=== PATIENT | male | born 1995 | race Caucasian/White ===

== ENCOUNTER 2017-02-17 14:14 | Emergency (ER) | payer MEDICAID ==
[~2017-02-17] VITALS: Ht 172.7 cm; Wt 97.5 kg
[~2017-02-17 14:14] MED LIST: ABILIFY; PROZAC; STRATTERA
[2017-02-17 14:23] VITALS: BP_SYST 150
[2017-02-17] MEDS ORDERED: HYDROcodone/ACETAMIN 7.5-325 MG TAB PO ONE (16:45)
[2017-02-17] MEDS ORDERED: BACITRACIN 1 GM OINT TP ONE (16:45)
[2017-02-17 17:37] VITALS: BP_SYST 157
== END 2017-02-17 17:37 | disposition home or self-care (01) ==
LOC: SED 14:14
DX: S52.124A Nondisplaced fracture of head of right radius, initial encounter for closed fracture (principal); I10 Essential (primary) hypertension; F31.9 Bipolar disorder, unspecified; V00.131A Fall from skateboard, initial encounter; Y93.51 Activity, roller skating (inline) and skateboarding; Y92.89 Other specified places as the place of occurrence of the external cause; Y99.8 Other external cause status
CPT/HCPCS: 99284

== ENCOUNTER 2017-06-05 18:26 | Emergency (ER) | payer MEDICAID ==
[~2017-06-05] VITALS: Ht 167.6 cm; Wt 92.5 kg
[2017-06-05 18:48] VITALS: BP_SYST 144
--- NOTE | 2017-06-05 18:50 | NUR ---
Patient to ER bed 02 to gown for evaluation. Side rails up. Report given to JOSY Berg
--- NOTE | 2017-06-05 19:00 | NUR ---
ER Dr. Palacio at bedside examining patient.
[2017-06-05] MEDS ORDERED: HYDROcodone/ACETAMIN 5-325 MG TAB (NORCO/ VICODIN) PO ONE (19:15)
--- NOTE | 2017-06-05 19:15 | NUR ---
Pt has had two bug bites that are on both flanks. Red, swollen, and painful to touch. Will continue to monitor. No other injuries or complaints mentioned/noted. No distress noted.
[2017-06-05] MEDS ORDERED: ceFAZolin SODIUM 1 GM VIAL IM ONE (20:30)
[2017-06-05] MEDS ORDERED: LIDOCAINE 1%, 20 ML MDV 20 ML ONE (21:27)
--- NOTE | 2017-06-05 21:30 | NUR ---
Dr. Garner asked for blood cultures before administration. No change in orders at this time.
--- NOTE | 2017-06-05 21:37 | NUR ---
Medication will not scan. Full name, , and allergies confirmed before administration.
[2017-06-05 21:45] VITALS: BP_SYST 144
--- NOTE | 2017-06-05 21:45 | NUR ---
Patient given written and verbal discharge instructions and verbalizes understanding. ER MD discussed with patient the results and treatment provided. Patient in stable condition. ID arm band removed. Rx of keflex, Prednisone, and Clindamycin given. Patient educated on pain management and to follow up with PMD. Pain Scale 0/10. Opportunity for questions provided and answered. No adverse reactions noted.
== END 2017-06-05 21:45 | disposition home or self-care (01) ==
LOC: SED 18:26
DX: S30.861A Insect bite (nonvenomous) of abdominal wall, initial encounter (principal); L03.311 Cellulitis of abdominal wall; I10 Essential (primary) hypertension; F31.9 Bipolar disorder, unspecified; W57.XXXA Bitten or stung by nonvenomous insect and other nonvenomous arthropods, initial encounter; Y93.89 Activity, other specified; Y92.89 Other specified places as the place of occurrence of the external cause; Y99.8 Other external cause status
CPT/HCPCS: 96372; 99283; J0690; J2001

== ENCOUNTER 2017-08-06 09:53 | Emergency (ER) | payer MEDICAID ==
[~2017-08-06] VITALS: Ht 172.7 cm; Wt 90.7 kg
[2017-08-06 10:01] VITALS: BP_SYST 150
[2017-08-06] MEDS ORDERED: PENICILLIN G BENZATHINE 1.2 MMU/2 ML SYR IM ONE (11:00)
[2017-08-06 11:10] VITALS: BP_SYST 140
== END 2017-08-06 11:10 | disposition home or self-care (01) ==
LOC: SED 09:53
DX: S30.860A Insect bite (nonvenomous) of lower back and pelvis, initial encounter (principal); L03.312 Cellulitis of back [any part except buttock and flank]; I10 Essential (primary) hypertension; F31.9 Bipolar disorder, unspecified; W57.XXXA Bitten or stung by nonvenomous insect and other nonvenomous arthropods, initial encounter; Y93.89 Activity, other specified; Y92.89 Other specified places as the place of occurrence of the external cause; Y99.8 Other external cause status
CPT/HCPCS: 99283

== ENCOUNTER 2017-09-09 17:59 | Emergency (ER) | payer MEDICAID ==
[~2017-09-09] VITALS: Ht 170.2 cm; Wt 95.3 kg
[2017-09-09 18:11] VITALS: BP_SYST 164
[2017-09-09] MEDS ORDERED: LORazepam 1 MG TABLET PO ONE (19:15)
[2017-09-09] MEDS ORDERED: KETOROLAC TROMETHAMINE 60 MG/2 ML VIAL IM ONE (19:30)
[2017-09-09 20:01] VITALS: BP_SYST 145
== END 2017-09-09 20:00 | disposition home or self-care (01) ==
LOC: SED 17:59
DX: R07.89 Other chest pain (principal); R03.0 Elevated blood-pressure reading, without diagnosis of hypertension; I10 Essential (primary) hypertension; F31.9 Bipolar disorder, unspecified
CPT/HCPCS: 93005; 96372; 99283; J1885

== ENCOUNTER 2017-09-12 00:41 | Emergency (ER) | payer MEDICAID ==
[~2017-09-12] VITALS: Ht 170.2 cm; Wt 95.3 kg
[2017-09-12 00:45] VITALS: BP_SYST 150
[2017-09-12] MEDS: PREDNISONE 20 MG TABLET PO ONE (01:18)
[2017-09-12] MEDS: DIPHENHYDRAMINE HCL 50 MG CAPSULE PO ONE (01:18)
[2017-09-12 01:36] VITALS: BP_SYST 147
== END 2017-09-12 01:36 | disposition home or self-care (01) ==
LOC: SED 00:41
DX: T78.49XA Other allergy, initial encounter (principal); R22.0 Localized swelling, mass and lump, head; I10 Essential (primary) hypertension; F31.9 Bipolar disorder, unspecified; X58.XXXA Exposure to other specified factors, initial encounter
CPT/HCPCS: 99283; J7512; Q0163

== ENCOUNTER 2017-10-01 19:33 | Emergency (ER) | payer MEDICAID ==
--- NOTE | 2017-10-01 20:15 | NUR ---
Called pt x1, no answer
--- NOTE | 2017-10-01 20:20 | NUR ---
Called pt x2 no answer
--- NOTE | 2017-10-01 20:25 | NUR ---
Patient left without being seen.
== END 2017-10-01 20:25 | disposition left against medical advice (07) ==
LOC: SED 19:33
DX: S89.90XA Unspecified injury of unspecified lower leg, initial encounter (principal); Z53.21 Procedure and treatment not carried out due to patient leaving prior to being seen by health care provider; X58.XXXA Exposure to other specified factors, initial encounter; Y93.89 Activity, other specified; Y92.89 Other specified places as the place of occurrence of the external cause; Y99.8 Other external cause status

== ENCOUNTER 2017-10-02 08:41 | Emergency (ER) | payer MEDICAID ==
[~2017-10-02] VITALS: Ht 170.2 cm; Wt 99.8 kg
[2017-10-02 09:01] VITALS: BP_SYST 143
--- NOTE | 2017-10-02 09:06 | NUR ---
Pt placed to ER bed 04, to gown, report given to JOSY Bustamante.
--- NOTE | 2017-10-02 09:10 | NUR ---
ER at bedside examining patient.
--- NOTE | 2017-10-02 09:12 | NUR ---
Pt presents to ER c/o L thigh / hip pain of 10/10 s/p [facility] fall 1 week ago. Pt reports taking pain medication at home with little relief. Pt denies pain elsewhere. Pt reports history of HTN. No acute distress noted, AOX4, NKDA.
--- NOTE | 2017-10-02 09:40 | NUR ---
Dr. Rodriguez at bedside updating pt on results of xray.
[2017-10-02 09:53] VITALS: BP_SYST 152
--- NOTE | 2017-10-02 09:53 | NUR ---
Patient given written and verbal discharge instructions and verbalizes understanding. ER MD discussed with patient the results and treatment provided. Patient in stable condition. ID arm band removed. Rx of Ibuprofen 800mg given. Patient educated on pain management and to follow up with PMD. Pain Scale 10/10 as per pt, but Dr. Rodriguez sent pt home with pain medication. Opportunity for questions provided and answered.
== END 2017-10-02 09:53 | disposition home or self-care (01) ==
LOC: SED 08:41
DX: S70.02XA Contusion of left hip, initial encounter (principal); S30.0XXA Contusion of lower back and pelvis, initial encounter; F31.9 Bipolar disorder, unspecified; I10 Essential (primary) hypertension; W17.89XA Other fall from one level to another, initial encounter; Y93.89 Activity, other specified; Y92.89 Other specified places as the place of occurrence of the external cause; Y99.8 Other external cause status
CPT/HCPCS: 72170-TC; 73502; 99284

== ENCOUNTER 2017-10-23 00:44 | Emergency (ER) | payer MEDICAID ==
[~2017-10-23] VITALS: Ht 170.2 cm; Wt 99.8 kg
[2017-10-23 00:46] VITALS: BP_SYST 148
[2017-10-23] MEDS ORDERED: FAMOTIDINE 20 MG TABLET PO ONE (01:00)
[2017-10-23] MEDS ORDERED: DIPHENHYDRAMINE HCL 25 MG CAPSULE PO ONE (01:00)
[2017-10-23] MEDS ORDERED: PREDNISONE 20 MG TABLET PO ONE (01:00)
[2017-10-23 01:18] VITALS: BP_SYST 133
== END 2017-10-23 01:18 | disposition home or self-care (01) ==
LOC: SED 00:44
DX: T78.1XXA Other adverse food reactions, not elsewhere classified, initial encounter (principal); F31.9 Bipolar disorder, unspecified; I10 Essential (primary) hypertension; Z91.018 Allergy to other foods; X58.XXXA Exposure to other specified factors, initial encounter
CPT/HCPCS: 99284; J7512; Q0163

== ENCOUNTER 2017-12-05 01:00 | Emergency (ER) | payer MEDICAID ==
[~2017-12-05] VITALS: Ht 170.2 cm; Wt 97.5 kg
[2017-12-05 01:08] VITALS: BP_SYST 156
--- NOTE | 2017-12-05 01:08 | NUR ---
Patient to ER bed 07 to gown for evaluation. Side rails up. Will assume care
--- NOTE | 2017-12-05 01:10 | NUR ---
Patient complaining of lip swelling after work. 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 Patient states he took a pill of Prednisone and some swelling went down. Denies any shortness of breath. Denies any pain. No other complaints/injuries per patient or as noted. Will continue to monitor
--- NOTE | 2017-12-05 01:14 | NUR ---
MARTI Zepeda at bedside examining patient.
[2017-12-05] MEDS ORDERED: FAMOTIDINE 20 MG TABLET PO ONE (01:15)
[2017-12-05] MEDS ORDERED: DIPHENHYDRAMINE HCL 25 MG CAPSULE PO ONE (01:15)
--- NOTE | 2017-12-05 01:20 | NUR ---
Patient medicated per md orders
[2017-12-05 01:40] VITALS: BP_SYST 146
--- NOTE | 2017-12-05 01:40 | NUR ---
Patient given verbal discharge instructions and verbalizes understanding. ER MD discussed with patient the results and treatment provided. Patient in stable condition. Patient left without Rx of Pepcid, Prednisone and Benadryl. Patient educated on pain management and to follow up with PMD in 2-3 days. Pain Scale 0/10 Opportunity for questions provided and answered.
== END 2017-12-05 01:40 | disposition home or self-care (01) ==
LOC: SED 01:00
DX: T78.49XA Other allergy, initial encounter (principal); R22.0 Localized swelling, mass and lump, head; I10 Essential (primary) hypertension; F31.9 Bipolar disorder, unspecified; Z91.018 Allergy to other foods; X58.XXXA Exposure to other specified factors, initial encounter
CPT/HCPCS: 99283; Q0163

== ENCOUNTER 2018-01-16 08:23 | Emergency (ER) | payer MEDICAID ==
[~2018-01-16] VITALS: Ht 170.2 cm; Wt 97.5 kg
[2018-01-16 08:42] VITALS: BP_SYST 156
[2018-01-16] MEDS ORDERED: LevALBUTEROL HCL 1.25 MG/0.5 ML *CONC.* VIAL.NEB (XOPENEX CONC.) INH ONE (09:50)
[2018-01-16] MEDS: LISINOPRIL 10 MG TABLET (PRINIVIL) PO ONE (10:01)
[2018-01-16] MEDS: LevALBUTEROL HCL 1.25 MG/0.5 ML *CONC.* VIAL.NEB (XOPENEX CONC.) INH ONE (10:10)
[2018-01-16 10:30] VITALS: BP_SYST 148
== END 2018-01-16 10:30 | disposition home or self-care (01) ==
LOC: SED 08:23
DX: J40 Bronchitis, not specified as acute or chronic (principal); I10 Essential (primary) hypertension; F31.9 Bipolar disorder, unspecified; Z91.018 Allergy to other foods
CPT/HCPCS: 71045; 94640; 99283; J7612

== ENCOUNTER 2018-03-27 11:15 | Emergency (ER) | payer MEDICAID ==
[~2018-03-27] VITALS: Ht 170.2 cm; Wt 99.8 kg
[2018-03-27 11:15] VITALS: BP_SYST 160
[2018-03-27 12:30] VITALS: BP_SYST 151
== END 2018-03-27 12:30 | disposition home or self-care (01) ==
LOC: SED 11:15
DX: J06.9 Acute upper respiratory infection, unspecified (principal); F31.9 Bipolar disorder, unspecified; I10 Essential (primary) hypertension; Z88.8 Allergy status to other drugs, medicaments and biological substances; Z79.899 Other long term (current) drug therapy
CPT/HCPCS: 99283

== ENCOUNTER 2018-04-13 09:32 | Emergency (ER) | payer MEDICAID ==
[~2018-04-13] VITALS: Ht 170.2 cm; Wt 104.3 kg
[2018-04-13 09:59] VITALS: BP_SYST 165
[2018-04-13 10:21] VITALS: BP_SYST 140
== END 2018-04-13 10:21 | disposition home or self-care (01) ==
LOC: SED 09:32
DX: J06.9 Acute upper respiratory infection, unspecified (principal); F31.9 Bipolar disorder, unspecified; I10 Essential (primary) hypertension; Z88.8 Allergy status to other drugs, medicaments and biological substances
CPT/HCPCS: 99283

== ENCOUNTER 2018-07-15 20:03 | Emergency (ER) | payer MEDICAID ==
[~2018-07-15] VITALS: Ht 172.7 cm; Wt 102.1 kg
[2018-07-15 20:22] VITALS: BP_SYST 163
[2018-07-15] MEDS ORDERED: guaiFENesin/DEXTROMETHORPHAN 10 ML UDC PO ONE (21:15)
[2018-07-15] MEDS ORDERED: AZITHROMYCIN 250 MG TABLET PO ONE (21:15)
[2018-07-15 21:30] VITALS: BP_SYST 146
== END 2018-07-15 21:30 | disposition home or self-care (01) ==
LOC: SED 20:03
DX: J20.9 Acute bronchitis, unspecified (principal); F31.9 Bipolar disorder, unspecified; I10 Essential (primary) hypertension; F90.9 Attention-deficit hyperactivity disorder, unspecified type; Z91.048 Other nonmedicinal substance allergy status
CPT/HCPCS: 71046; 99284; Q0144

== ENCOUNTER 2021-06-09 23:10 | Emergency (ER) | payer MEDICAID ==
[~2021-06-09] VITALS: Ht 170.2 cm; Wt 106.6 kg
[2021-06-09 23:15] VITALS: BP_SYST 220
--- NOTE | 2021-06-09 23:24 | NUR ---
Patient to ER bed 8 to gown for evaluation. Side rails up. Report given to ALANNAH FERRIS.
--- NOTE | 2021-06-09 23:25 | NUR ---
Came in ER ambulatory from home this 26 year old male AAOX4, breathing spontaneusly at room air, not in distress noted. With chief complaints of left foot pain and swelling since yesterday, he twisted his foot as claimed. Known with HTN on medication but wasn't able to take for 1 week. Allergy to Zulema and peppermint
--- NOTE | 2021-06-09 23:25 | NUR ---
ER at bedside examining patient.
--- NOTE | 2021-06-09 23:28 | NUR ---
XRAY PERFORMED AT THE BEDSIDE.
[2021-06-09] MEDS ORDERED: KETOROLAC TROMETHAMINE 60 MG/2 ML VIAL IM ONE (23:30)
[2021-06-09] MEDS ORDERED: cloNIDine HCL 0.1 MG TABLET PO ONE (23:30)
[2021-06-10] MEDS ORDERED: IBUP-1970 PO (00:05)
[2021-06-10] MEDS ORDERED: HYDROcodone/ACETAMIN 5-325 MG TAB (NORCO/ VICODIN) PO ONE (00:15)
--- NOTE | 2021-06-10 00:15 | NUR ---
left lower posterior splint applied by EMT, neurovascular Assesment done prior and post application,positive pulse, able to move his toes, mild pain as claimed, capillary refill less than 2 secs.
--- NOTE | 2021-06-10 00:28 | NUR ---
Ketoralac non administer, patient refused and Dr. Herman made aware
[2021-06-10 00:45] VITALS: BP_SYST 145
--- NOTE | 2021-06-10 00:45 | NUR ---
Patient given written and verbal discharge instructions and verbalizes understanding. ER MD discussed with patient the results and treatment provided. Patient in stable condition. ID arm band removed. Rx of motrin and lisinopril given. Patient educated on pain management and to follow up with PMD. Pain Scale 3/10. Opportunity for questions provided and answered. Medication side effect fact sheet provided.
[2021-06-10] MEDS ORDERED: LISI10TA29 PO (00:46)
== END 2021-06-10 00:45 | disposition home or self-care (01) ==
LOC: SED 23:10
DX: M25.572 Pain in left ankle and joints of left foot (principal); I10 Essential (primary) hypertension; Z88.8 Allergy status to other drugs, medicaments and biological substances; Z79.899 Other long term (current) drug therapy
CPT/HCPCS: 99283

== ENCOUNTER 2021-09-20 23:33 | Emergency (ER) | payer OTHER, MEDICAID ==
[~2021-09-20 23:33] MED LIST changes: +IBUP-1970 PO; +LISI10TA29 PO
--- NOTE | 2021-09-21 | NUR ---
Called pt x 3, no answer. Patient left without being seen. No further treatment provided. ER MD aware
== END 2021-09-21 | disposition left against medical advice (07) ==
LOC: SED 23:33
DX: I10 Essential (primary) hypertension (principal); Z53.21 Procedure and treatment not carried out due to patient leaving prior to being seen by health care provider